=== PATIENT | male | born 1980 | race Caucasian/White ===

== ENCOUNTER 2018-06-15 08:29 | Inpatient (IN) | payer OTHER ==
[~2018-06-15] VITALS: Ht 180.3 cm; Wt 81.6 kg
[2018-06-15] VITALS (8 sets, daily range): BP systolic 120–182; BP diastolic 66–89
[~2018-06-15 08:29] MED LIST: SEROQUEL200 MG ORAL
[2018-06-15] MEDS ORDERED: LORazepam Inj 2mg/ml 1ml ONE (08:38)
--- NOTE | 2018-06-15 08:42 | Emergency Room Report ---
History of Present Illness General Chief Complaint: Overdose Source: Patient Present Illness HPI 38-year-old male presents ED for evaluation. Brought in by EMS for substance abuse. Patient states that he used methamphetamines yesterday. States he used more than normal. His very tremulous with generalized pains. Sharp, 8 out of 10, nonradiating. Denies chest pain or shortness of breath. States he was not try to hurt himself. Denies thyroid HIV. Denies hearing voices. Denies alcohol use. No other aggravating relieving factors. Denies any other associated symptoms Allergies: Coded Allergies: No Known Allergies (Unverified , 04/11/15) Patient History Past Medical History: none Past Surgical History: none Pertinent Family History: none Social History: Reports: drug use; Denies: smoking, alcohol use Immunizations: UTD Reviewed Nursing Documentation: PMH: Agreed; PSxH: Agreed Nursing Documentation-PMH Past Medical History: No History, Except For Hx Cardiac Problems: No - HIV Review of Systems All Other Systems: negative except mentioned in HPI Physical Exam Vital Signs Date Time Temp Pulse Resp B/P (MAP) Pulse Ox O2 Delivery O2 Flow Rate FiO2 06/15/18 08:24 99.1 122 28 138/92 98 Room Air Sp02 EP Interpretation: reviewed, normal General Appearance: alert, GCS 15, non-toxic, mild distress Head: normocephalic, atraumatic Eyes: bilateral eye normal inspection, bilateral eye PERRL ENT: hearing grossly normal, normal pharynx, no angioedema, normal voice Neck: full range of motion, supple/symm/no masses Respiratory: chest non-tender, lungs clear, normal breath sounds, speaking full sentences Cardiovascular #1: no edema, tachycardia Cardiovascular #2: 2+ carotid (R), 2+ carotid (L), 2+ radial (R), 2+ radial (L) , 2+ dorsalis pedis (R), 2+ dorsalis pedis (L) Gastrointestinal: normal bowel sounds, non tender, soft, non-distended, no guarding, no rebound Rectal: deferred Genitourinary: normal inspection, no CVA tenderness Musculoskeletal: back normal, gait/station normal, normal range of motion, non- tender Neurologic: alert, oriented x3, responsive, motor strength/tone normal, sensory intact, speech normal Psychiatric: mood/affect normal, no suicidal/homicidal ideation, anxious Reflexes: 3+ bicep (R), 3+ bicep (L), 3+ tricep (R), 3+ tricep (L), 3+ knee (R) , 3+ knee (L) Skin: normal color, no rash, warm/dry, well hydrated Lymphatic: no adenopathy Medical Decision Making Diagnostic Impression: Primary Impression: Methamphetamine abuse Additional Impressions: Drug overdose Qualified Codes: T50.901A - Poisoning by unspecified drugs, medicaments and biological substances, accidental (unintentional), initial encounter Dehydration ER Course Hospital Course 37-year-old male presents to ED after overdosing on methamphetamine Differential diagnoses include: rhabdo, anxiety, psychosis Clinical course She placed on stretcher. On surveillance monitor. After initial history and physical ordered Ativan IM I ordered labs, IV fluids Labs reviewed- Na 150, BUN/Cr elevated, CK in 300s, noted leukocytosis, hb/hct stable Patient initially tachycardic. Responding to IV fluids and Ativan dosing. I do not suspect SI or HI. case discussed with Dr. Crawford and he agreed to accept the patient to his service for further care and support i. I feel this is a highly complex case requiring extensive working including EKG/Rhythm strip, Xray/CT/US, Blood/urine lab work, repeat exams while in ED, and administration of strong opiates/narcotics for pain control, admission to hospital or close patient follow up. Diagnosis - methamphetamine abuse, drug overdose, dehydration Admitted to floor in serious condition Labs Test 06/15/18 08:40 White Blood Count 20.8 K/UL (4.8-10.8) Red Blood Count 5.51 M/UL (4.70-6.10) Hemoglobin 17.8 G/DL (14.2-18.0) Hematocrit 50.8 % (42.0-52.0) Mean Corpuscular Volume 92 FL (80-99) Mean Corpuscular Hemoglobin 32.2 PG (27.0-31.0) Mean Corpuscular Hemoglobin Concent 34.9 G/DL (32.0-36.0) Red Cell Distribution Width 11.0 % (11.6-14.8) Platelet Count 473 K/UL (150-450) Mean Platelet Volume 5.5 FL (6.5-10.1) Neutrophils (%) (Auto) % (45.0-75.0) Lymphocytes (%) (Auto) % (20.0-45.0) Monocytes (%) (Auto) % (1.0-10.0) Eosinophils (%) (Auto) % (0.0-3.0) Basophils (%) (Auto) % (0.0-2.0) Differential Total Cells Counted 100 Neutrophils % (Manual) 82 % (45-75) Lymphocytes % (Manual) 10 % (20-45) Monocytes % (Manual) 8 % (1-10) Eosinophils % (Manual) 0 % (0-3) Basophils % (Manual) 0 % (0-2) Band Neutrophils 0 % (0-8) Platelet Estimate Adequate Platelet Morphology Normal Red Blood Cell Morphology Normal Sodium Level 150 MMOL/L (136-145) Potassium Level 4.5 MMOL/L (3.5-5.1) Chloride Level 109 MMOL/L (98-107) Carbon Dioxide Level 24 MMOL/L (21-32) Anion Gap 17 mmol/L (5-15) Blood Urea Nitrogen 21 mg/dL (7-18) Creatinine 2.7 MG/DL (0.55-1.30) Estimat Glomerular Filtration Rate 26.4 mL/min (>60) Glucose Level 124 MG/DL (74-106) Calcium Level 10.9 MG/DL (8.5-10.1) Total Bilirubin 0.6 MG/DL (0.2-1.0) Aspartate Amino Transf (AST/SGOT) 37 U/L (15-37) Alanine Aminotransferase (ALT/SGPT) 90 U/L (12-78) Alkaline Phosphatase 77 U/L (46-116) Total Creatine Kinase 337 U/L (26-308) Troponin I 0.013 ng/mL (0.000-0.056) Total Protein 9.3 G/DL (6.4-8.2) Albumin 5.2 G/DL (3.4-5.0) Globulin 4.1 g/dL Albumin/Globulin Ratio 1.3 (1.0-2.7) Salicylates Level 1.7 ug/mL (2.8-20) Acetaminophen Level < 2 MCG/ML (10-30) Serum Alcohol < 3 mg/dL Last Vital Signs Date Time Temp Pulse Resp B/P (MAP) Pulse Ox O2 Delivery O2 Flow Rate FiO2 06/15/18 08:24 99.1 122 28 138/92 98 Room Air Status: improved Disposition: ADMITTED INPATIENT Condition: Serious Jv Packer MD Jun 15, 2018 08:42
[2018-06-15] MEDS ORDERED: LORazepam Inj 2mg/ml 1ml IM ONE (08:45)
[2018-06-15 08:49] LABS: HEMATOCRIT 50.8 % (42.0-52.0); HEMOGLOBIN 17.8 G/DL (14.2-18.0); MEAN CORPUSCULAR VOLUME 92 FL (80-99); PLATELET COUNT 473 K/UL (150-450); RED BLOOD COUNT 5.51 M/UL (4.70-6.10); WHITE BLOOD COUNT 20.8 K/UL (4.8-10.8)
--- NOTE | 2018-06-15 09:00 | NUR ---
ED Nurse Note: Pt brought in to ER by ambulance due to Crystalmeth overdose from the street. pt is not a homeless but he injected drug on the street. pt aao x 2 restless but follows commands. skin pale and diaphretic. pt denied suicidal idea but admitted that he hears voice to do drug. pt reported that he injected Crystalmeth $35 worth but could not recall dosage. pt is hypertensive and tachycardia as documented.
--- NOTE | 2018-06-15 09:10 | NUR ---
ED Nurse Note: AQUILINO Henriquez, [id number] came and talked to pt and confirmed that pt is not on hold.
--- NOTE | 2018-06-15 09:12 | NUR ---
ED Nurse Note: IV line made on Rt AC 20 G and iv bolus initiated. pt is talking to himself but able to redirect when nurse reminds him realitiy. pt unable to void at this time. will attempt again.
[2018-06-15 09:20] LABS: ANION GAP 17 mmol/L (5-15); BLOOD UREA NITROGEN 21 mg/dL (7-18); CALCIUM 10.9 MG/DL (8.5-10.1); CARBON DIOXIDE 24 MMOL/L (21-32); CHLORIDE 109 MMOL/L (98-107); CREATININE 2.7 MG/DL (0.55-1.30); POTASSIUM 4.5 MMOL/L (3.5-5.1); SODIUM 150 MMOL/L (136-145)
[2018-06-15 09:24] LABS: ALANINE AMINOTRANSFERASE 90 U/L (12-78); ALBUMIN 5.2 G/DL (3.4-5.0); ALBUMIN/GLOBULIN RATIO 1.3 (1.0-2.7); ALKALINE PHOSPHATASE 77 U/L (46-116); ASPARTATE AMINO TRANSFERASE 37 U/L (15-37); BILIRUBIN,TOTAL 0.6 MG/DL (0.2-1.0); CREATINE KINASE 337 U/L (26-308)
[2018-06-15] MEDS ORDERED: LORazepam Inj 2mg/ml 1ml IV ONE ×2 (10:00→13:15)
--- NOTE | 2018-06-15 10:17 | NUR ---
ED Nurse Note: Patient sees bugs climbing up to his penis and refusing to urinate. Another dose of Ativan 2mg was administrated thru IV and will try to obtain urine sample later again.
--- NOTE | 2018-06-15 11:13 | NUR ---
ED Nurse Note: pt stood up with nurse's assist and pt still could not urinate. ERMD made aware. Received verbal order that it is ok if we cannot obtain.
--- NOTE | 2018-06-15 13:08 | NUR ---
ED Nurse Note: Per nurse Krysta Howard is not available at this moment. will call back in 20 minutes.
[2018-06-15] MEDS ORDERED: Morphine Sulfate 2mg/ml Inj(IV/IM USE ONLY) IVP PRN (13:30)
[2018-06-15] MEDS ORDERED: LORazepam Inj 2mg/ml 1ml IV PRN (13:30)
[2018-06-15] MEDS ORDERED: Mylanta II UD 30ml ORAL PRN (13:30)
--- NOTE | 2018-06-15 13:36 | NUR ---
ED Nurse Note: Attempted to give report again and nuse is not available. will attempt again.
[2018-06-15] MEDS ORDERED: Dextrose 50% 25ml Syringe IV PRN (13:45)
--- NOTE | 2018-06-15 13:49 | NUR ---
ED Nurse Note: Report given to SAMANTHA Chaparro.
--- NOTE | 2018-06-15 14:10 | NUR ---
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
--- NOTE | 2018-06-15 14:16 | Consultation ---
Consult Note Consult Note 38-year-old male presents ED for evaluation. Brought in by EMS for substance abuse. Patient states that he used methamphetamines yesterday. States he used more than normal. His very tremulous with generalized pains. Sharp, 8 out of 10, nonradiating. Denies chest pain or shortness of breath. States he was not try to hurt himself. Denies thyroid HIV. Denies hearing voices. Denies alcohol use. No other aggravating relieving factors. Denies any other associated symptoms Allergies: Coded Allergies: No Known Allergies (Unverified , 04/11/15) Patient History Past Medical History: none Past Surgical History: none Pertinent Family History: none Social History: Reports: drug use; Denies: smoking, alcohol use Immunizations: UTD Reviewed Nursing Documentation: PMH: Agreed; PSxH: Agreed Nursing Documentation-PMH Past Medical History: No History, Except For Hx Cardiac Problems: No - HIV Assessment/Plan acute renal failure Drug over dose HIV dehydration Hydrate avoid nephrotoxics urine studies urine tox screen monitor renal parameters bp control Shree Yanez MD Jun 15, 2018 14:16
[2018-06-15] MEDS ORDERED: Haloperidol 5mg/ml Inj IM PRN (15:30)
--- NOTE | 2018-06-15 15:48 | NUR ---
NURSE NOTES: Patient arrived to unit via gurney. Belongings reviewed and accounted for. Report received from SAMANTHA Mata. Patient is restless, shaking, not following commands, patient observed continuously pouring water over self. Patient observed putting hand preparing box tender repeatedly on penis. Dr. Topete notified. New orders received.
[2018-06-15] MEDS: Potassium Chloride 10 MEQ in D5 1/2NS 1,000 ML IV SCH (16:53)
--- NOTE | 2018-06-15 19:30 | NUR ---
NURSE NOTES: Received patient in bed, restraints applied, bilateral, wrist, VSS, afebrile, able to make his needs known. Call light is within reach, bed is in low position, locked and alarm is on. Will continue to monitor for safety and comfort.
--- NOTE | 2018-06-15 19:30 | NUR ---
HAND-OFF: Report given to SAMANTHA Graf.
--- NOTE | 2018-06-15 20:54 | History & Physical ---
History and Physical History & Physicial Dictated for Int Med-Juanpablo Carter MD Jun 15, 2018 20:54
[2018-06-15] MEDS ORDERED: Miralax 17gm pkt ORAL PRN (21:00)
[2018-06-15] MEDS ORDERED: Zolpidem 5mg tab ORAL PRN (21:00)
--- NOTE | 2018-06-15 21:49 | Consultation ---
History of Present Illness General Chief Complaint: Overdose Referring physician: Dr. Jorge Crawford Present Illness HPI 38-year-old male presents ED for evaluation. Brought in by EMS for substance abuse. Patient states that he used methamphetamines yesterday. States he used more than normal. His very tremulous with generalized pains. Sharp, 8 out of 10, nonradiating. Denies chest pain or shortness of breath. States he was not try to hurt himself. Denies thyroid HIV. Denies hearing voices. Denies alcohol use. No other aggravating relieving factors. Denies any other associated symptoms Allergies: Coded Allergies: No Known Allergies (Unverified , 04/11/15) Medication History Scheduled Quetiapine Fumarate* (Seroquel*), 200 MG ORAL DAILY, (Reported) Patient History Healthcare decision maker N Resuscitation status Full Code Advanced Directive on File Past Medical/Surgical History Past Medical/Surgical History: (1) Suicidal ideation (2) Suicidal intent (3) Methamphetamine abuse Physical Exam General Appearance: WD/WN, no apparent distress, alert Lines, tubes and drains: peripheral HEENT: normocephalic, atraumatic, anicteric, mucous membranes moist, PERRL, EOMI, pharynx normal Neck: non-tender Respiratory/Chest: chest wall non-tender, lungs clear Cardiovascular/Chest: normal peripheral pulses Abdomen: normal bowel sounds, non tender, soft 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, no motor/sensory deficits, alert, oriented x 3, responsive, normal mood/affect Musculoskeletal: normal muscle bulk Last 24 Hour Vital Signs Date Time Temp Pulse Resp B/P (MAP) Pulse Ox O2 Delivery O2 Flow Rate FiO2 06/15/18 16:22 Room Air 06/15/18 16:13 107 06/15/18 15:56 98.2 124 24 121/66 (84) 06/15/18 14:10 98.6 112 17 127/71 98 Room Air 06/15/18 14:10 98.8 110 21 126/76 96 Room Air 06/15/18 13:00 98.6 112 17 127/71 98 Room Air 06/15/18 12:00 98.2 108 17 140/83 98 Room Air 06/15/18 11:00 98.7 122 17 146/89 96 Room Air 06/15/18 10:00 97.0 122 17 180/77 100 Room Air 06/15/18 08:52 145 35 Room Air 06/15/18 08:52 98.0 145 35 182/89 98 Room Air 06/15/18 08:24 99.1 122 28 138/92 98 Room Air Laboratory Tests Test 06/15/18 08:40 06/15/18 17:13 White Blood Count 20.8 K/UL (4.8-10.8) H Red Blood Count 5.51 M/UL (4.70-6.10) Hemoglobin 17.8 G/DL (14.2-18.0) Hematocrit 50.8 % (42.0-52.0) Mean Corpuscular Volume 92 FL (80-99) Mean Corpuscular Hemoglobin 32.2 PG (27.0-31.0) H Mean Corpuscular Hemoglobin Concent 34.9 G/DL (32.0-36.0) Red Cell Distribution Width 11.0 % (11.6-14.8) L Platelet Count 473 K/UL (150-450) H Mean Platelet Volume 5.5 FL (6.5-10.1) L Neutrophils (%) (Auto) % (45.0-75.0) Lymphocytes (%) (Auto) % (20.0-45.0) Monocytes (%) (Auto) % (1.0-10.0) Eosinophils (%) (Auto) % (0.0-3.0) Basophils (%) (Auto) % (0.0-2.0) Differential Total Cells Counted 100 Neutrophils % (Manual) 82 % (45-75) H Lymphocytes % (Manual) 10 % (20-45) L Monocytes % (Manual) 8 % (1-10) Eosinophils % (Manual) 0 % (0-3) Basophils % (Manual) 0 % (0-2) Band Neutrophils 0 % (0-8) Platelet Estimate Adequate Platelet Morphology Normal Red Blood Cell Morphology Normal Sodium Level 150 MMOL/L (136-145) H Potassium Level 4.5 MMOL/L (3.5-5.1) Chloride Level 109 MMOL/L (98-107) H Carbon Dioxide Level 24 MMOL/L (21-32) Anion Gap 17 mmol/L (5-15) H Blood Urea Nitrogen 21 mg/dL (7-18) H Creatinine 2.7 MG/DL (0.55-1.30) H Estimat Glomerular Filtration Rate 26.4 mL/min (>60) Glucose Level 124 MG/DL (74-106) H Calcium Level 10.9 MG/DL (8.5-10.1) H Total Bilirubin 0.6 MG/DL (0.2-1.0) Aspartate Amino Transf (AST/SGOT) 37 U/L (15-37) Alanine Aminotransferase (ALT/SGPT) 90 U/L (12-78) H Alkaline Phosphatase 77 U/L (46-116) Total Creatine Kinase 337 U/L (26-308) H Troponin I 0.013 ng/mL (0.000-0.056) Total Protein 9.3 G/DL (6.4-8.2) H Albumin 5.2 G/DL (3.4-5.0) H Globulin 4.1 g/dL Albumin/Globulin Ratio 1.3 (1.0-2.7) Salicylates Level 1.7 ug/mL (2.8-20) L Acetaminophen Level < 2 MCG/ML (10-30) L Serum Alcohol < 3 mg/dL Urine Random Sodium 141 mmol/L (20-110) H Urine Opiates Screen Negative (NEGATIVE) Urine Barbiturates Screen Negative (NEGATIVE) Phencyclidine (PCP) Screen Negative (NEGATIVE) Urine Amphetamines Screen Positive (NEGATIVE) H Urine Benzodiazepines Screen Negative (NEGATIVE) Urine Cocaine Screen Negative (NEGATIVE) Urine Marijuana (THC) Screen Negative (NEGATIVE) Microbiology Date/Time Source Procedure Growth Status 06/15/18 11:00 Rectum Received Height (Feet): 5 Height (Inches): 11.00 Weight (Pounds): 180 Medications Current Medications Medications (Trade) Dose Ordered Sig/Magui Route PRN Reason Start Time Stop Time Status Last Admin Dose Admin Acetaminophen (Tylenol) 650 mg Q4H PRN ORAL T>100.5 06/15/18 13:30 07/15/18 13:29 Clonidine HCl (Catapres Tab) 0.1 mg Q4H PRN ORAL bp over 165 06/15/18 14:30 07/15/18 14:29 Dextrose (Dextrose 50%) 25 ml Q30M PRN IV Hypoglycemia 06/15/18 13:45 07/15/18 13:36 Dextrose (Dextrose 50%) 50 ml Q30M PRN IV hypoglycemia 06/15/18 13:45 07/15/18 13:44 Haloperidol Lactate (Haldol) 5 mg Q4H PRN IM Agitation 06/15/18 15:30 07/15/18 15:29 06/15/18 15:42 Lorazepam (Ativan 2mg/ml 1ml) 0.5 mg Q4H PRN IV For Anxiety 06/15/18 13:30 06/22/18 13:29 06/15/18 16:52 Morphine Sulfate (Morphine Sulfate) 1 mg Q4H PRN IVP PAIN 4-10 06/15/18 13:30 06/22/18 13:29 Ondansetron HCl (Zofran) 4 mg Q6H PRN IVP Nausea & Vomiting 06/15/18 13:30 07/15/18 13:29 Pantoprazole (Protonix) 40 mg DAILY ORAL 06/15/18 15:00 07/15/18 14:59 06/15/18 16:31 Polyethylene Glycol (Miralax) 17 gm HSPRN PRN ORAL Constipation 06/15/18 21:00 07/15/18 20:59 Potassium Chloride 10 meq/ Dextrose/Sodium Chloride 1,005 ml @ 100 mls/hr Q10H3M IV 06/15/18 15:00 07/15/18 14:59 06/15/18 16:53 Quetiapine Fumarate (SEROquel) 200 mg DAILY ORAL 06/16/18 09:00 07/16/18 08:59 Zolpidem Tartrate (Ambien) 5 mg HSPRN PRN ORAL Insomnia 06/15/18 21:00 06/22/18 20:59 Assessment/Plan Problem List: (1) Methamphetamine abuse Assessment & Plan: Reports intermittent use prior to OD today Maintain BP < 140 [facility] protocol Psych Consult ICD Codes: F15.10 - Other stimulant abuse, uncomplicated SNOMED: 938305095 (2) Suicidal ideation Assessment & Plan: Recommend [facility] Protocol Pscyh Consult ICD Codes: R45.851 - Suicidal ideations SNOMED: 8545354 (3) Suicidal intent ICD Codes: R45.851 - Suicidal ideations SNOMED: 901234264 (4) Altered mental status Assessment & Plan: Q4 Hour Neuro Obs No need for CT at this time. [facility] Protocol Psych Eval ICD Codes: R41.82 - Altered mental status, unspecified SNOMED: 834896396 Status: stable Shiloh Encarnacion N.P. Jun 15, 2018 21:49
--- NOTE | 2018-06-15 23:00 | NUR ---
NURSE NOTES: Patient requested to be discharged AMA, contacted Dr. Blake , per Dr. Blake she was unable to come to see the patient. was made aware.
[2018-06-16] VITALS: BP 123/71
[2018-06-16] MEDS: Potassium Chloride 10 MEQ in D5 1/2NS 1,000 ML IV SCH (02:04)
[2018-06-16 04:00] VITALS: BP 127/75
--- NOTE | 2018-06-16 06:52 | NUR ---
HAND-OFF: Report given to Kanchan SINGH.
[2018-06-16 06:57] LABS: BASOPHILS % (AUTO) 0.7 % (0.0-2.0); EOSINOPHILS % (AUTO) 1.7 % (0.0-3.0); HEMATOCRIT 36.2 % (42.0-52.0); HEMOGLOBIN 12.5 G/DL (14.2-18.0); LYMPHOCYTES % (AUTO) 20.5 % (20.0-45.0); MEAN CORPUSCULAR VOLUME 93 FL (80-99); MONOCYTES % (AUTO) 10.5 % (1.0-10.0); NEUTROPHILS % (AUTO) 66.6 % (45.0-75.0); PLATELET COUNT 232 K/UL (150-450); RED BLOOD COUNT 3.91 M/UL (4.70-6.10); RED CELL DISTRIBUTION WIDTH 10.9 % (11.6-14.8); WHITE BLOOD COUNT 9.6 K/UL (4.8-10.8)
[2018-06-16 07:20] LABS: CREATINE KINASE 1458 U/L (26-308); GAMMA GLUTAMYL TRANSPEPTIDASE 13 U/L (5-85); PHOSPHORUS 4.7 MG/DL (2.5-4.9)
--- NOTE | 2018-06-16 07:26 | NUR ---
NURSE NOTES: receivedm report from SAMANTHA Graf. patient in bed. alert. verbally responsive. no respiratory distress noted. no c/o pain at this time. IV on LFA fluid running. bed in the lowest position. call light within reach. will continue to monitor.
--- NOTE | 2018-06-16 07:33 | NUR ---
NURSE NOTES: received call from LAB/Janet for re test blood lab for verifying sodium level. mad aware patient.
[2018-06-16 08:00] VITALS: BP 136/76
[2018-06-16] MEDS ORDERED: QUEtiapine 200mg tab ORAL SCH (09:00)
[2018-06-16 09:07] LABS: ALANINE AMINOTRANSFERASE 60 U/L (12-78); ALBUMIN 3.1 G/DL (3.4-5.0); ALBUMIN/GLOBULIN RATIO 1.1 (1.0-2.7); ALKALINE PHOSPHATASE 53 U/L (46-116); ANION GAP 13 mmol/L (5-15); ASPARTATE AMINO TRANSFERASE 60 U/L (15-37); BILIRUBIN,TOTAL 0.5 MG/DL (0.2-1.0); BLOOD UREA NITROGEN 37 mg/dL (7-18); CALCIUM 8.8 MG/DL (8.5-10.1); CARBON DIOXIDE 21 MMOL/L (21-32); CHLORIDE 105 MMOL/L (98-107); CHOLESTEROL 123 MG/DL (< 200); CREATININE 4.3 MG/DL (0.55-1.30); HDL CHOLESTEROL 64 MG/DL (40-60); POTASSIUM 3.8 MMOL/L (3.5-5.1); SODIUM 139 MMOL/L (136-145); TRIGLYCERIDES 77 MG/DL (30-150)
--- NOTE | 2018-06-16 09:28 | NUR ---
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 DEHYDRATION VS: BP 182/89, P 145, T 97.0, RR 35, Spo2 98 WBC 20.8, RBC 3.91, Hgb 12.5, Hct 36.2, BUN 37, Cr 4.3 IS:NS x1L IV LORAZEPAM 2mg IV PROTONIX 40mg ZOSYN 1,005ml IV HALDOL 5mg IM ADMITTED TO MED/SURG DC PLAN: RETURN TO HOME
--- NOTE | 2018-06-16 10:05 | NUR ---
NURSE NOTES: patient signed AMA. AOx4. explained risks. patient refused to stay for further care. IV and ID removed. No bleeding on IV site. checked and counted belonging with patient and obtained sign. patient left himself.
--- NOTE | 2018-06-16 10:46 | NUR ---
NURSE NOTES: notified dr. Topete that patient left AMA.
--- NOTE | 2018-06-16 10:51 | NUR ---
*-* NO INSURANCE INFORMATION IN THE BAR UNABLE TO SEND CLINICALSV *-*
--- NOTE | 2018-06-16 11:00 | NUR ---
Social Service Note Patient signed out AMA prior to SW assessment for substance abuse.
--- NOTE | 2018-06-16 11:01 | Diagnostic Imaging Report ---
APPROVED REPORT CPT Code: 06867 Present Symptoms Comments: BILATERAL LEGS PAIN. BILATERAL: Imaging reveals a patent deep venous system bilaterally. There is no evidence of thrombus within the femoral, popliteal or tibial segments. The greater saphenous veins are also within normal limits. Doppler indicates normal spontaneous flow within these segments.
--- NOTE | 2018-06-17 08:15 | History and Physical Report ---
DATE OF ADMISSION: 06/16/2018 CHIEF COMPLAINT: The patient is a 37-year-old white male, who presents with a chief complaint of altered mental status. HISTORY OF PRESENT ILLNESS: The patient was brought to [facility] emergency room with a history of methamphetamine abuse. The patient was tremulous. The patient states he thought he was withdrawing from methamphetamine. The patient was found to be altered in the emergency room. The patient was admitted with methamphetamine withdrawal and altered mental status. REVIEW OF SYSTEMS: CONSTITUTIONAL: The patient denies weight loss or weight gain. The patient denies fevers or chills. HEENT: The patient denies ear or throat pain. The patient denies headache. CARDIOVASCULAR: The patient denies palpitations or chest pain. CHEST: The patient denies wheeze or shortness of breath. ABDOMEN: The patient denies nausea, vomiting, diarrhea, or constipation. GENITOURINARY: The patient denies dysuria or increased frequency of urination. NEUROMUSCULAR: The patient is somewhat confused as above. The patient denies seizures or generalized weakness. PAST MEDICAL HISTORY: The patient denies. PAST SURGICAL HISTORY: The patient denies. CURRENT MEDICATIONS: The patient denies. ALLERGIES: No known drug allergies. SOCIAL HISTORY: The patient is single and lives alone. The patient admits to tobacco use of one pack per day. The patient denies alcohol use. The patient admits to methamphetamine use of an unknown quantity. PHYSICAL EXAMINATION: VITAL SIGNS: Temperature 99.1, respirations 20, pulse 122, blood pressure 138/92. GENERAL: The patient is a well-developed and well-nourished white male, in no apparent distress. HEENT: Eyes, pupils are equal and responsive to light and accommodation. Extraocular movements are intact. NECK: Supple without lymphadenopathy. CHEST: Lungs are clear to auscultation bilaterally without wheezes or rales. CARDIOVASCULAR: Regular rhythm and rate. S1 and S2 are normal without murmurs, rubs, or gallops. ABDOMEN: Soft, nontender, and nondistended. Positive bowel sounds. No hepatosplenomegaly. Currently, no rebound or guarding noted. EXTREMITIES: Negative for clubbing, cyanosis, or edema. RECTAL/GENITAL: Refused. NEUROLOGIC: Cranial nerves II through XII are grossly intact without focal deficits. Motor strength is 5/5 bilaterally. Deep tendon reflexes are 2+ plantar. LABORATORY STUDIES: WBC 20.8, hemoglobin 17.8, hematocrit 50.6, and platelets 473,000. Sodium 150, potassium 4.5, chloride 109, CO2 24, BUN 21, creatinine 2.7, and glucose 124. ASSESSMENT: This is a 37-year-old white male. 1. Altered mental status. 2. Methamphetamine abuse. 3. Renal failure. 4. Dehydration. TREATMENT: 1. Methamphetamine abuse. A Psychiatric consultation has been obtained with Dr. Hernandez. The patient has been started empirically on Ativan. We will follow recommendations of Psychiatry. 2. Altered mental status is probably secondary to methamphetamine dependence/withdrawal. 3. Renal failure/dehydration. The patient is currently receiving intravenous fluids. Juanpablo Yates M.D. DR: PASHA JOB#: [id number] CC:
--- NOTE | 2018-06-18 12:35 | Discharge Summary ---
Discharge Summary Discharge Summary _ DATE OF ADMISSION: 06/15/2018 DATE OF DISCHARGE: 06/16/2018 Patient left AGAINST MEDICAL ADVICE REASON FOR ADMISSION: 37 years old male with past medical history of HIV , was brought by paramedics for evaluation Patient was used methamphetamine the day prior to presentation. Patient reported that he tool more than usually. Patient appeared to be tremulous and and complained of generalized pain. Pain reported as sharp, nonradiating, 8 out of 10 on a scale 1-10. Patient denied chest pain and shortness of breath. Patient stated that he did not want to hurt himself. Patient denied hearing voices. He denied alcohol use. Vital signs revealed tachycardia with heart rate 122 and tachypnea with respiratory rate 28. No fevers. Patient appeared to be in mild distress, but nontoxic. Laboratory workup revealed severe leukocytosis WBC 20.8. Stable hemoglobin and hematocrit. Sodium 150. Chloride 109. Calcium 10.9. BUN 21, creatinine 2.7. Glucose 124. ALT 90. Total CK 337. Troponin - 0.013. Urine toxicology screen was positive for amphetamine. Serum alcohol, Tylenol and salicylate were all negative. Patient admitted for drug overdose and dehydration. CONSULTANTS: neurologist Dr. Burch fixed income analyst Dr. Yanez [facility]: Patient admitted to medical surgical floor. Patient started on the IV hydration Workforce Development Assistant , psychiatrist and neurologist consults were requested.. Patient started on the IV fluids. Renal parameters and electrolytes were closely monitored. Electrolytes corrected as needed. Nephrotoxins were avoided. Creatinine worsening today 4.3. Sodium and chloride down to normal with hydration . Calcium down to 8.8. However creatinine worsened and trended up to 4.3. Workforce Development Assistant followed. Patient had acute renal failure, possibly precipitated by drug overdose . Urine studies were initiated. Renal ultrasound was ordered. Pulse oximetry was stable on room air. Venous duplex bilateral lower extremity revealed no evidence of acute DVT. Neurologist followed. Patient with evidence of methamphetamine abuse and possible suicidal intent. No need for CT scan at this time. Neurologist recommended to continue with [facility] protocol and recommended psych evaluation, which was pending. Supportive care provided. GI prophylaxis provided. Antiemetic provided as needed. Pain management was addressed as needed. Patient decided to leave AGAINST MEDICAL ADVICE. The risks and consequences of signing AGAINST MEDICAL ADVICE were discussed with patient in detail. Patient verbalized understanding, nevertheless signed AMA form and left. composite layup worker was attempted to see the patient. However at this time patient already signed AMA form and left. FINAL DIAGNOSES: Acute renal failure Dehydration Drug overdose Methamphetamine abuse HIV status Altered mental status , likely due to methamphetamine abuse I have been assigned to dictate discharge summary for this account. I was not involved in the patient's management. Ruth Ann Waddell NP Jun 18, 2018 12:35
--- NOTE | 2018-06-18 15:57 | NUR ---
*-* INSURANCE *-* ALL CLINICALS AND REVIEW HAVE BEEN FAXED TO: [facility] F:[phone]
== END 2018-06-16 10:15 | disposition left against medical advice (07) | DRG 683 ==
LOC: EDBD → EMR 08:50 → MERGE 08:50 → EDBEDREQ 10:15 → EDBEDREQSVC 10:16 → EDBEDREQ 10:16 → 4E 13:10
DX: N17.9 Acute kidney failure, unspecified (principal); B20 Human immunodeficiency virus [HIV] disease; R45.851 Suicidal ideations; E86.0 Dehydration; T43.621A Poisoning by amphetamines, accidental (unintentional), initial encounter; R41.82 Altered mental status, unspecified; F15.10 Other stimulant abuse, uncomplicated
CPT/HCPCS: 36415; 80053; 80061; 80307; 80329; 82550; 82607; 82746; 82977; 83036; 83605; 83735; 83880; 84100; 84300; 84443; 84484; 84550; 85007; 85025; 86140; 87081; 93970; 96361; 96372; 96374; 96376; 99285